=== PATIENT | female | born 1965 | race Caucasian/White ===

== ENCOUNTER → 2020-03-09 | Outpatient (CLI) | payer BC ==
[~2020-03-09] MED LIST: FERROUS SULFAT325 M2 PO; [UNRECOGNIZED DRUG - REMARK]
== END ==
LOC: KOH-I 10:08
DX: M25.551 Pain in right hip (principal)
CPT/HCPCS: 73502

== ENCOUNTER 2020-04-28 11:46 | Emergency (ER) | payer BC ==
[2020-04-28 12:48] LABS: HEMOGLOBIN 14.4 gm/dl (12.3-15.3); RED BLOOD COUNT 4.73 M/UL (4.00-5.10)
[2020-04-28 13:07] LABS: BUN/CREATININE RATIO 17 (0-10)
== END 2020-04-28 16:24 | disposition home or self-care (01) ==
LOC: ER1 11:46
PROVIDERS: Physician Assistant Medical
DX: R07.89 Other chest pain (principal); F17.210 Nicotine dependence, cigarettes, uncomplicated; Z90.89 Acquired absence of other organs; Z90.710 Acquired absence of both cervix and uterus; Z88.5 Allergy status to narcotic agent
CPT/HCPCS: 71045; 80053; 81001; 82550; 82553; 83874; 83880; 84484; 85025; 85379; 85610; 93005; 96374; 99285; J2405

== ENCOUNTER 2020-10-05 10:50 | Emergency (ER) | payer BC ==
[2020-10-05 12:20] LABS: HEMOGLOBIN 15.7 gm/dl (12.3-15.3); RED BLOOD COUNT 5.12 M/UL (4.00-5.10); WHITE BLOOD COUNT 6.8 K/UL (4.5-11.0)
[2020-10-05 12:59] LABS: BUN/CREATININE RATIO 18 (0-10)
[2020-10-05] MEDS ORDERED: VENTOLIN HFA 66.7 GM INH (15:09)
[2020-10-05] MEDS ORDERED: ZOFRAN4 MG PO (15:09)
== END 2020-10-05 15:20 | disposition home or self-care (01) ==
LOC: ER1 10:50
PROVIDERS: Physician Assistant Medical
DX: U07.1 COVID-19 (principal); J12.82 Pneumonia due to coronavirus disease 2019; F17.210 Nicotine dependence, cigarettes, uncomplicated; Z88.5 Allergy status to narcotic agent; Z90.710 Acquired absence of both cervix and uterus; Z90.89 Acquired absence of other organs
CPT/HCPCS: 71045; 80053; 83605; 85025; 87040; 99285; J2405

== ENCOUNTER 2021-07-25 11:07 | Inpatient (IN) | payer OTHER ==
[~2021-07-25] VITALS: Ht 162.6 cm; Wt 68.0 kg
[~2021-07-25 11:07] MED LIST changes: +VENTOLIN HFA 66.7 GM INH; +ZOFRAN4 MG PO
[2021-07-25 11:50] LABS: HEMOGLOBIN 14.1 gm/dl (12.3-15.3); RED BLOOD COUNT 4.7 M/UL (4.00-5.10); WHITE BLOOD COUNT 7.6 K/UL (4.5-11.0)
[2021-07-25 12:10] LABS: BUN/CREATININE RATIO 27 (0-10)
[2021-07-26 02:42] LABS: HEMOGLOBIN 13.3 gm/dl (12.3-15.3); RED BLOOD COUNT 4.44 M/UL (4.00-5.10); WHITE BLOOD COUNT 5.7 K/UL (4.5-11.0)
[2021-07-26 02:55] LABS: BUN/CREATININE RATIO 25 (0-10)
[2021-07-29 05:08] LABS: AMPHETAMINES, URINE Negative ng/mL (Cutoff=1000); BARBITURATE Negative ng/mL (Cutoff=200); BENZODIAZEPINES Negative ng/mL (Cutoff=200); CANNABINOIDS Negative ng/mL (Cutoff=20); COCAINE (METABOLITE) Negative ng/mL (Cutoff=300); CREATININE 88.1 mg/dL (20.0-300.0); MEPERIDINE Negative ng/mL (Cutoff=200); METHADONE Negative ng/mL (Cutoff=300); OPIATES Negative ng/mL (Cutoff=300); PHENCYCLIDINE Negative ng/mL (Cutoff=25); PROPOXYPHENE Negative ng/mL (Cutoff=300)
[2021-07-29] MEDS ORDERED: LISINOPRIL5 MG PO (11:34)
[2021-07-29] MEDS ORDERED: AMLODIPINE BESYL5 MG PO (11:34)
[2021-07-29] MEDS ORDERED: ASPIRIN81 MG PO (11:34)
[2021-07-29 15:56] LABS: RBC (AUTOMATED) 2200 10^6 (0); WBC (AUTOMATED 9 10^3 (0-5)
[2021-07-29 16:08] LABS: GLUCOSE,CSF 84 mg/dL (50-80); TOTAL PROTEIN,CSF 50 mg/dL (20-45)
== END 2021-07-29 19:02 | disposition home or self-care (01) | DRG 60 ==
LOC: ER1 11:07 → PROG CARE 13:57 → CDU 13:57 → PROG CARE 18:18
PROVIDERS: Emergency Medicine; Internal Medicine; Physician Assistant Medical; ADMIT Internal Medicine
PROC: B24BZZZ Ultrasonography of Heart with Aorta (ICD-10-PCS; principal; 2021-07-26)
PROC: 009U3ZX Drainage of Spinal Canal, Percutaneous Approach, Diagnostic (ICD-10-PCS; 2021-07-29)
PROC: B01B1ZZ Fluoroscopy of Spinal Cord using Low Osmolar Contrast (ICD-10-PCS; 2021-07-29)
DX: G37.9 Demyelinating disease of central nervous system, unspecified (principal); G35 Multiple sclerosis; G81.94 Hemiplegia, unspecified affecting left nondominant side; Z20.822 Contact with and (suspected) exposure to COVID-19; I10 Essential (primary) hypertension; R47.1 Dysarthria and anarthria; R29.704 NIHSS score 4; F41.9 Anxiety disorder, unspecified; R47.81 Slurred speech; I07.1 Rheumatic tricuspid insufficiency; F17.210 Nicotine dependence, cigarettes, uncomplicated; R29.810 Facial weakness; Z98.891 History of uterine scar from previous surgery; Z88.8 Allergy status to other drugs, medicaments and biological substances; Z82.3 Family history of stroke; Z82.49 Family history of ischemic heart disease and other diseases of the circulatory system; Z83.3 Family history of diabetes mellitus
CPT/HCPCS: ECHO; 36415; 70450; 70496; 70498; 70553; 71045; 72125; 72156; 72157; 80048; 80053; 80061; 80307; 82040; 82550; 82553; 82784; 82945; 82962; 83735; 83873; 84157; 84484; 85025; 85027; 85610; 85730; 89051; 92507; 92526; 92610; 93005; 93306; 97110; 97116-GP-CQ; 97162; 97166; 97530; 97530-GP-CQ; 99285; A9577; J0360; J1650; J2060; J2405; J2930; J7030; J7070; Q9967